=== PATIENT | female | born 1975 | race Caucasian/White ===

== ENCOUNTER 2020-02-25 12:32 | Emergency (ER) | payer OTHER, SELFPAY ==
[2020-02-25 12:41] VITALS: BP 187/99; PULSE 79; RESP 18; TEMP 36.3; O2SAT 99; BMI 32.1
--- NOTE | 2020-02-25 13:05 | DI.RAD.S_ITS ---
PROCEDURE: XR SHOULDER LT MIN 2V INDICATIONS: shoulder/ arm pain TECHNIQUE: 3 views of the shoulder were acquired. COMPARISON: None. FINDINGS: Bones: No fractures or dislocations. No suspicious bony lesions. Visualized ribs appear intact. Soft tissues: No suspicious soft tissue calcifications. IMPRESSION: No trauma found, source of shoulder pain is not identified. Dictated by: Al Zafar M.D. on 02/25/2020 at 13:23 Approved by: Al Zafar M.D. on 02/25/2020 at 13:23
[2020-02-25] MEDS: LIDOCAINE PATCH 1 EACH ADH..PATCH TOP (13:12)
[2020-02-25] MEDS: KETOROLAC 60 MG/2 ML VIAL 30 MG IM (13:12)
[2020-02-25] MEDS: CYCLOBENZAPRINE 10 MG TABLET PO (13:37)
--- NOTE | 2020-02-25 14:19 | ED_ITS ---
HPI - Extremity Injury (Upper) <GERDA Beckford-BC - Last Filed: 02/25/20 17:01> General Chief Complaint: Extremity Injury, Upper Stated Complaint: states hurt her left arm Time Seen by Provider: 02/25/20 12:42 Source: patient Mode of arrival: Ambulatory Limitations: no limitations History of Present Illness HPI narrative: The patient is a 44-year-old female nonsmoker who denies pertine nt medical history presents with a chief complaint of left arm and shoulder pain. She states it started approximately 2 days ago when she was lifting cinder blocks with her left arm. She states that she has not been to a healthcare provider several years, does not like going to see healthcare providers. She has tried heat packs, ice packs, [id number] medications and muscle rubs to see if that would help her left shoulder and arm feel better. She states that she is concerned that her arm is out of socket. She is also worried about her heart given left arm pain. It is worse with motion, pressure. She does complain of decreased range of motion. She denies any history of left shoulder or arm injuries. And that she denies any chest pain, shortness of breath, other injuries. Related Data Previous Rx's Medication Instructions Recorded cyclobenzaprine 10 mg PO TID PRN #14 tab 02/25/20 hydrocodone-acetaminophen [Preble] 1 tab PO Q4-6H PRN #7 tab 02/25/20 ketorolac 10 mg PO TID PRN #14 tab 02/25/20 lidocaine 1 patch TOP DAILY PRN #15 each 02/25/20 Allergies Allergy/AdvReac Type Severity Reaction Status Date / Time tramadol AdvReac Verified 02/25/20 12:41 Review of Systems <BETHANY BeckfordBC - Last Filed: 02/25/20 17:01> Review of Systems Narrative: GENERAL: Denies chills, fatigue, malaise, fever, sweats. HEENT: Denies sinus pain, ear pain, sore throat, difficulty swallowing, dizziness. RESPIRATORY: Denies dyspnea, cough, wheezing, hemoptysis, sputum. CARDIOVASCULAR: Denies chest pain, palpitations, orthopnea, edema, GASTROINTESTINAL: Denies nausea, vomiting, abdominal pain, diarrhea, constipation, melena. : Denies dysuria, frequency, incontinence, hematuria, urinary retention. MUSCULOSKELETAL: See HPI SKIN: Denies rash, skin lesions, or other NEUROLOGIC: Denies weakness, headache, numbness, change in speech, confusion, seizures, incoordination. PSYCHIATRIC: No concerning psychosocial issues. 12 point review of systems is negative except for those stated above Patient History <JARED Beckford - Last Filed: 02/25/20 17:01> Surgical History Status post knee surgery Status post tubal ligation Family History Brother Mental health problem Osteoarthritis Brother Anxiety Father Osteoarthritis Gout Mother Ovarian cancer Hypertension High cholesterol Mental health problem Stroke Fibromyalgia Grandfather Type 2 diabetes mellitus Grandmother Breast cancer Type 1 diabetes Sister Scoliosis Social History Smoking Status: Never smoker Smoking Status: Never smoker Substance Use Type: does not use Exam <JARED Beckford - Last Filed: 02/25/20 17:01> Narrative Exam Narrative: GENERAL: This is a well-nourished, well-developed patient, in no acute distress HEAD: Atraumatic. Normocephalic. No temporal or scalp tenderness. EYES: Pupils equal round and reactive. Extraocular motions intact. No scleral icterus. No injection or drainage. ENT: Nose without bleeding, purulent drainage or septal hematoma. Throat without erythema, tonsillar hypertrophy or exudate. Uvula midline. Airway patent. NECK: Trachea midline. No JVD or lymphadenopathy. Supple, nontender, no meningeal signs. CARDIOVASCULAR: Regular rate and rhythm RESPIRATORY: Clear to auscultation. Breath sounds equal bilaterally. No wheezes, rales, or rhonchi. No cough. No increased respiratory effort. No accessory muscle use. GASTROINTESTINAL: Abdomen soft, non-tender, nondistended. No hepato- splenomegaly, or palpable masses. No guarding. EXTREMITIES: Pain to palpation noted on left arm, around the biceps. Decreased range of motion all deluna. Positive left radial pulse. BACK: Nontender without deformity or crepitance. No flank tenderness. NEURO: AOx3. SKIN: No rash or erythema on visible skin. No erythema laceration or abrasion noted left arm or shoulder. Initial Vital Signs Initial Vital Signs: Vital Signs Temperature 97.4 F L 02/25/20 12:41 Pulse Rate 79 02/25/20 12:41 Respiratory Rate 18 02/25/20 12:41 Blood Pressure 187/99 H 02/25/20 12:41 Pulse Oximetry 99 02/25/20 12:41 <Cindy Bashir DO - Last Filed: 02/26/20 07:38> Initial Vital Signs Initial Vital Signs: Vital Signs Temperature 97.4 F L 02/25/20 12:41 Pulse Rate 79 02/25/20 12:41 Respiratory Rate 18 02/25/20 12:41 Blood Pressure 187/99 H 02/25/20 12:41 Pulse Oximetry 99 02/25/20 12:41 Scores <JARED Beckford - Last Filed: 02/25/20 17:01> GCS Twan coma scale eye opening: Spontaneous Twan coma scale verbal response: Orientated [place] coma scale motor response: Obey commands [place] coma scale total score: 15 Course <JARED Beckford - Last Filed: 02/25/20 17:01> Orders Ordered: Discontinued Medications Hydrocodone Bitart/Acetaminophen (Preble 5/325) 1 tab PO NOW ONE Stop: 02/25/20 14:50 Last Admin: 02/25/20 14:52 Dose: 1 tab Documented by: SAMEERA Cyclobenzaprine HCl (Flexeril) 10 mg PO NOW ONE Stop: 02/25/20 13:31 Last Admin: 02/25/20 13:37 Dose: 10 mg Documented by: SAMEERA Ketorolac Tromethamine (Toradol) 30 mg IM NOW ONE Stop: 02/25/20 13:06 Last Admin: 02/25/20 13:12 Dose: 30 mg Documented by: SAMEERA Lidocaine (Lidoderm) 1 each TOP NOW ONE Stop: 02/25/20 13:06 Last Admin: 02/25/20 13:12 Dose: 1 each Documented by: SAMEERA Vital Signs Vital signs: Vital Signs - 8 hr 02/25/20 12:41 02/25/20 15:12 Temperature 97.4 F L Pulse Rate 79 79 Respiratory Rate 18 18 Blood Pressure 187/99 H 170/109 H Pulse Oximetry 99 99 <Cindy Bashir DO - Last Filed: 02/26/20 07:38> Orders Ordered: Discontinued Medications Hydrocodone Bitart/Acetaminophen (Preble 5/325) 1 tab PO NOW ONE Stop: 02/25/20 14:50 Last Admin: 02/25/20 14:52 Dose: 1 tab Documented by: SAMEERA Cyclobenzaprine HCl (Flexeril) 10 mg PO NOW ONE Stop: 02/25/20 13:31 Last Admin: 02/25/20 13:37 Dose: 10 mg Documented by: SAMEERA Ketorolac Tromethamine (Toradol) 30 mg IM NOW ONE Stop: 02/25/20 13:06 Last Admin: 02/25/20 13:12 Dose: 30 mg Documented by: SAMEERA Lidocaine (Lidoderm) 1 each TOP NOW ONE Stop: 02/25/20 13:06 Last Admin: 02/25/20 13:12 Dose: 1 each Documented by: SAMEERA Vital Signs Vital signs: Vital Signs - 8 hr 02/25/20 12:41 02/25/20 15:12 Temperature 97.4 F L Pulse Rate 79 79 Respiratory Rate 18 18 Blood Pressure 187/99 H 170/109 H Pulse Oximetry 99 99 MDM - Extremity Injury (Upper) <JARED Beckford - Last Filed: 02/25/20 17:01> Imaging Data Extremity x-ray #1: Radiologist's Impression: [address] [place] [address] XRay Report Signed Patient: Sabine Ellis KMR#: [id number] : 1975Acct:[id number] Age/Sex: 44 / FDate of Service: 02/25/20 Loc: ED Accession Number: [id number] Procedure: XR shoulder LT min 2V Ordering Provider: Francisca Cohen PROCEDURE: XR SHOULDER LT MIN 2V INDICATIONS: shoulder/ arm pain TECHNIQUE: 3 views of the shoulder were acquired. COMPARISON: None. FINDINGS: Bones: No fractures or dislocations. No suspicious bony lesions. Visualized ribs appear intact. Soft tissues: No suspicious soft tissue calcifications. IMPRESSION: No trauma found, source of shoulder pain is not identified. Dictated by: Al Zafar M.D. on 02/25/2020 at 13:23 Approved by: Al Zafar M.D. on 02/25/2020 at 13:23 ECG Data Attestation: I personally reviewed and interpreted this ECG as follows: Interpretation: Sinus rhythm. Ventricular rate 81. P.r. interval 162. QRS 76. Viewed by Dr Bashir [facility] Narrative Medical decision making narrative: The patient is a 44-year-old female who presents with a chief complaint of left shoulder and arm pain ongoing for several days. Negative x-ray. Decreased range of motion noted. Discussed x- ray does not rule out soft tissue injury. Patient feels improved after the above-stated therapies I discussed at length the importance of following up with primary care provider in the next few days. Patient may benefit from firs occult therapy, further imaging etcetera. Patient has been of no questions or concerns upon discharge and state understanding of return precautions as well as follow-up care. Discharge Plan Departure Patient Disposition: Home Clinical Impression: Acute pain of left shoulder Discharge Date/Time: 02/25/20 15:17 Instructions: How To Perform RICE (Rest, Ice, Compress, Elevate), DI for Shoulder Pain Activity Restrictions/Additional Instructions: As I discussed, your x-ray shows no acute fracture. This does not rule out a soft tissue injury such as a ligament or tendon injury. It is important that you follow up with primary care provider, especially if worsening or no improvement. There can be fractures that did not show up on initial x-ray. I have given you a prescription of Toradol. This is an NSAID. Do not combine it with other NSAIDs such as Aleve or ibuprofen. I suggest taking it with some food, as it can irritate your stomach. Cyclobenzaprine as a muscle relaxer that can be sedating. I have given you a prescription of a narcotic for pain. Be aware that this can be constipating and sedating. I encouraged taking with a stool softener, pushing fluids and fiber. Do not take and drive, operate heavy machinery, etc. Do not combine it with any other sedating substances such as alcohol. The combination of narcotics and alcohol and/or other sedatives can be lethal. Please be aware that we do not provide refills of controlled substances in the emergency department. I have given contact information the [facility] health resource room teacher. Please come back to emergency department for any acute concerns. Prescriptions: New lidocaine 5 % adhesive patch,medicated 1 patch TOP DAILY PRN (Reason: pain) Qty: 15 RF: 0 hydrocodone-acetaminophen [Preble] 5-325 mg tablet 1 tab PO Q4-6H PRN (Reason: pain) Qty: 7 RF: 0 ketorolac 10 mg tablet 10 mg PO TID PRN (Reason: pain) Qty: 14 RF: 0 cyclobenzaprine 10 mg tablet 10 mg PO TID PRN (Reason: muscle spasm) Qty: 14 RF: 0 Referrals: [facility] [Outside] <Cindy Bashir DO - Last Filed: 02/26/20 07:38> [facility] Baljinderature Attestation: I was immediately available in the department for consultation. Documentation has been reviewed. I agree with assessment and plan.
[2020-02-25] MEDS: HYDROCODONE/ACET 5/325 TABLET 1 TAB PO (14:52)
[2020-02-25 15:12] VITALS: BP 170/109; PULSE 79; RESP 18; O2SAT 99
== END 2020-02-25 15:17 | disposition home or self-care (01) ==
PROVIDERS: Emergency Provider Nurse Practitioner Family; Family Provider Family Medicine
DX: M25.512 Pain in left shoulder (principal); R07.9 Chest pain, unspecified
CPT/HCPCS: 73030; 93005; 93010; 96372; 99284; J1885

== ENCOUNTER → 2020-11-06 12:28 | Outpatient (CLI) | payer OTHER, SELFPAY ==
--- NOTE | 2020-11-06 | DI.RAD.S_ITS ---
PROCEDURE: XR KNEE LT 3V INDICATIONS: PAIN TECHNIQUE: 3 views of the knee were acquired. COMPARISON: None. FINDINGS: Bones: No fractures or dislocations. No suspicious bony lesions. Scattered degenerative subchondral sclerosis and spurring. Soft tissues: No joint effusion. No suspicious soft tissue calcifications. IMPRESSION: Minimal degenerative changes as above. If the patient's pain or other symptoms persist, consider further evaluation with MRI Dictated by: Nii Javed M.D. on 11/07/2020 at 10:06 Approved by: Nii Javed M.D. on 11/07/2020 at 10:08
--- NOTE | 2020-11-06 12:35 | DI.RAD.S_ITS ---
PROCEDURE: XR LUMBAR SPINE 2-3V INDICATIONS: back PAIN TECHNIQUE: 3 views of the lumbar spine were acquired. COMPARISON: None. FINDINGS: Bones: No fracture. Mild narrowing of the lower lumbar disc spaces. Multilevel degenerative endplate sclerosis and spurring. Diffuse facet arthropathy. Mild levocurvature. 6 non rib-bearing lumbar vertebra incidentally noted. Soft tissues: Overlying bowel gas pattern is normal. No suspicious soft tissue calcifications. IMPRESSION: Mild lower lumbar spondylosis and diffuse facet arthropathy. Mild levocurvature 6 non rib-bearing lumbar vertebra incidentally noted, and recommend close attention to spinal segmental level prior to any intervention. Dictated by: Nii Javed M.D. on 11/07/2020 at 10:08 Approved by: Nii Javed M.D. on 11/07/2020 at 10:10
--- NOTE | 2020-11-06 12:35 | DI.RAD.S_ITS ---
PROCEDURE: XR KNEE RT 3V INDICATIONS: KNEE PAIN TECHNIQUE: 3 views of the knee were acquired. COMPARISON: None. FINDINGS: Bones: No fractures or dislocations. No suspicious bony lesions. Scattered degenerative subchondral sclerosis and spurring. No definite joint space narrowing. Soft tissues: No joint effusion. No suspicious soft tissue calcifications. IMPRESSION: Minimal degenerative changes. If the patient's pain or other symptoms persist, consider further evaluation with MRI Dictated by: Nii Javed M.D. on 11/07/2020 at 10:08 Approved by: Nii Javed M.D. on 11/07/2020 at 10:08
--- NOTE | 2020-11-06 12:36 | DI.RAD.S_ITS ---
PROCEDURE: XR HIP W PEL IF DONE RT 2V INDICATIONS: HIP PAIN TECHNIQUE: AP pelvis with lateral view(s) of the right hip(s). COMPARISON: None. FINDINGS: Bones: No fractures or dislocations. Pelvic ring appears intact. No suspicious bony lesions. Soft tissues: The visualized bowel gas pattern is normal. No suspicious soft tissue calcifications. IMPRESSION: Normal for age. Dictated by: Al Zafar M.D. on 11/06/2020 at 16:49 Approved by: Al Zafar M.D. on 11/06/2020 at 16:50
== END ==
PROVIDERS: Family Provider Family Medicine; PCP Orthopaedic Surgery; Visit Provider Orthopaedic Surgery
DX: M17.0 Bilateral primary osteoarthritis of knee (principal); M54.9 Dorsalgia, unspecified; M16.9 Osteoarthritis of hip, unspecified; M47.816 Spondylosis without myelopathy or radiculopathy, lumbar region; M54.31 Sciatica, right side
CPT/HCPCS: 72100; 73502; 73562

== ENCOUNTER → 2021-09-15 09:55 | Outpatient (CLI) | payer BC, SELFPAY ==
--- NOTE | 2021-09-15 09:59 | DI.MRI.S_ITS ---
PROCEDURE: MR LUMBAR SPINE WO CON INDICATIONS: Sciatica, right side TECHNIQUE: Noncontrast sagittal T1 spin echo and T2 fast echo, sagittal STIR, and T2 fast spin echo through the lumbar spine. In cases with scoliosis, additional coronal T2 fast spin echo may be performed. COMPARISON: None. FINDINGS: Image quality: Excellent. Alignment and Curvature: There is normal bony alignment. Bone Marrow: Marrow is of normal overall signal. No acute vertebral body compression fractures. Spinal Cord: Conus medullaris terminates at the L1 level. Visualized cord demonstrates normal signal and size. Paraspinous Soft Tissues: No paravertebral masses. T12-L1: Normal appearance. L1-L2: Normal appearance. L2-L3: Normal appearance. L3-L4: Slight loss of disc signal. Mild, diffuse disc bulge. Mild bilateral facet hypertrophy. Mild narrowing of the central canal. No neural foraminal narrowing. No neural compression. L4-L5: Slight loss of disc signal. Mild, diffuse disc bulge. Mild bilateral facet hypertrophy. Mild narrowing of the central canal. No neural foraminal narrowing. No neural compression. L5-S1: Slight loss of disc signal. Mild, diffuse disc bulge. No central stenosis. No neural foraminal narrowing. No neural compression. IMPRESSION: 1. Multilevel degenerative disc disease. 2. Multilevel facet arthropathy. 3. Mild L3-L4 and L4-L5 central canal narrowing. 4. No neural foraminal narrowing. 5. No neural compression. Dictated by: Saida Barnes MD, PhD on 09/17/2021 at 10:29 Approved by: Saida Barnes MD, PhD on 09/17/2021 at 10:33
== END ==
PROVIDERS: Family Provider Family Medicine; PCP Orthopaedic Surgery; Visit Provider Orthopaedic Surgery
DX: M51.16 Intervertebral disc disorders with radiculopathy, lumbar region (principal); M47.26 Other spondylosis with radiculopathy, lumbar region; M48.061 Spinal stenosis, lumbar region without neurogenic claudication
CPT/HCPCS: 72148

== ENCOUNTER → 2023-09-08 10:17 | Outpatient (CLI) | payer BC, SELFPAY ==
--- NOTE | 2023-09-08 10:19 | DI.RAD.S_ITS ---
PROCEDURE: XR FOOT RT MIN 3V INDICATIONS: FOOT PAIN TECHNIQUE: 3 views of the foot were acquired. COMPARISON: None. FINDINGS: Bones: No fractures or dislocations. No suspicious bony lesions. There is varus angulation of the 1st metatarsal with compensatory valgus angulation of the 1st proximal phalanx reflecting hallux valgus. Tarsometatarsal joint arthritic changes. Moderate calcaneal spur Soft tissues: No tibiotalar joint effusion. Achilles tendon appears normal. IMPRESSION: Hallux valgus Approved by: Denilson Nava M.D. on 09/08/2023 at 16:43
== END ==
LOC: RAD 10:18
PROVIDERS: Family Provider Family Medicine; PCP Family Medicine; Referring Provider Family Medicine; Visit Provider Family Medicine
DX: M79.671 Pain in right foot (principal); M20.11 Hallux valgus (acquired), right foot
CPT/HCPCS: 73630

== ENCOUNTER → 2023-09-27 10:10 | Outpatient (CLI) | payer BC, SELFPAY ==
--- NOTE | 2023-09-27 10:11 | DI.MRI.S_ITS ---
PROCEDURE: MR LUMBAR SPINE WO CON INDICATIONS: Intervertebral disc degeneration, lumbar region TECHNIQUE: Noncontrast sagittal T1 spin echo and T2 fast echo, sagittal STIR, and T2 fast spin echo through the lumbar spine. In cases with scoliosis, additional coronal T2 fast spin echo may be performed. COMPARISON: [facility], MR, MR LUMBAR SPINE WO CON, 09/15/2021, 10:18. FINDINGS: Image quality: Excellent. Alignment and Curvature: There is trace retrolisthesis of L5 on S1. Bone Marrow: Marrow is of normal overall signal. No acute vertebral body compression fractures. Spinal Cord: Conus medullaris terminates at the L1-2 level. Visualized cord demonstrates normal signal and size. Paraspinous Soft Tissues: No paravertebral masses. Discs: Scattered areas of minimal to mild desiccation is present most prominent L5-S1. T12-L1: No disc bulge, spinal stenosis or foraminal narrowing. No interval change. L1-L2: No disc bulge, spinal stenosis or foraminal narrowing. No interval change. L2-L3: No disc bulge, spinal stenosis or foraminal narrowing. No interval change. L3-L4: Mild disc bulge with mild spinal stenosis. No foraminal narrowing. Facet and ligamentum flavum hypertrophy, slightly progressive, with minimal epidural lipomatosis. L4-L5: Mild disc bulge with mild spinal stenosis. No foraminal narrowing. Facet and ligamentum flavum hypertrophy are present, minimally progressive. L5-S1: Mild disc bulge without spinal stenosis. No foraminal narrowing. Facet hypertrophy is present. No interval change. IMPRESSION: Multilevel degenerative changes demonstrating disc bulges and mild spinal stenosis. No foraminal narrowing. Changes are relatively stable as detailed above. Dictated by: Babs Lares M.D. on 09/30/2023 at 10:19 Approved by: Babs Lares M.D. on 09/30/2023 at 10:24
--- NOTE | 2023-09-27 10:12 | DI.RAD.S_ITS ---
PROCEDURE: XR KNEE RT 3V INDICATIONS: KNEE PAIN TECHNIQUE: 3 views of the knee were acquired. COMPARISON: [facility], CR, XR KNEE RT 3V, 11/06/2020, 12:39. FINDINGS: Bones: No fractures or dislocations. No suspicious bony lesions. Questionable medial medial compartment degenerative change. No erosions. Minimal scattered periarticular osteophytes. Soft tissues: Mild joint effusion. No suspicious soft tissue calcifications. IMPRESSION: Scattered minimal areas of early arthritic change relatively stable. Dictated by: Babs Lares M.D. on 09/28/2023 at 12:40 Approved by: Babs Lares M.D. on 09/28/2023 at 12:41
== END ==
PROVIDERS: Family Provider Family Medicine; PCP Family Medicine; Referring Provider Family Medicine; Visit Provider Family Medicine
DX: M51.36 Other intervertebral disc degeneration, lumbar region (principal); M51.37 Other intervertebral disc degeneration, lumbosacral region; M47.816 Spondylosis without myelopathy or radiculopathy, lumbar region; M47.817 Spondylosis without myelopathy or radiculopathy, lumbosacral region; M48.061 Spinal stenosis, lumbar region without neurogenic claudication; M25.561 Pain in right knee
CPT/HCPCS: 72148; 73562